=== PATIENT | female | born 1930 | race Caucasian/White ===

== ENCOUNTER 2019-05-29 12:23 | Observation (INO) | payer OTHER ==
[~2019-05-29] VITALS: Ht 163.8 cm; Wt 61.8 kg
[2019-05-29] MEDS ORDERED: SODIUM CHLORIDE FLUSH 10ML SYR IVF ONE (13:00)
[2019-05-29] MEDS ORDERED: ONDANSETRON 2MG/ML, 2ML IV ONE (13:00)
[2019-05-29] MEDS ORDERED: ACETAMINOPHEN 325 MG TABLET PO ONE (13:00)
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
[2019-05-29 13:16] LABS: BASOPHILS # (AUTO) 0.04 x10^3/uL (0-0.1); BASOPHILS % (AUTO) 0 % (0-1); EOSINOPHILS # (AUTO) 0.03 x10^3/uL (0-0.4); EOSINOPHILS % (AUTO) 0 % (1-7); LYMPHOCYTES # (AUTO) 0.99 x10^3/uL (1-3.4); LYMPHOCYTES % (AUTO) 9 % (22-44); MD NO; MEAN CORPUSCULAR HEMOGLOBIN 28.1 pg (27.0-34.8); MEAN CORPUSCULAR HGB CONC 32.4 g/dL (32.4-35.8); MEAN CORPUSCULAR VOLUME 86.6 fL (80-100); MEAN PLATELET VOLUME 8.2 fL (7.4-10.4); MONOCYTES # (AUTO) 1.33 x10^3/uL (0.2-0.8); MONOCYTES % (AUTO) 12 % (2-9); NEUTROPHILS # (AUTO) 8.75 x10^3/uL (1.8-6.8); NEUTROPHILS % (AUTO) 79 % (42-75); PLATELET COUNT 259 x10^3/uL (130-400); RED BLOOD COUNT 4.29 x10^6/uL (3.82-5.3); RED CELL DISTRIBUTION WIDTH 14.8 % (9.6-15.2)
[2019-05-29] MEDS ORDERED: FENTANYL PF 100 MCG/2ML ONE (13:19)
[2019-05-29 13:28] LABS: ANION GAP 10 mmol/L (5-15); CALCIUM 9.1 mg/dL (8.5-10.1); CHLORIDE 104 mmol/L (98-107); CREATININE 1.06 mg/dL (0.55-1.02)
[2019-05-29 13:29] LABS: ALANINE AMINOTRANSFERASE 17 U/L (12-78); ALBUMIN 2.7 g/dL (3.4-5.0)
[2019-05-29] MEDS ORDERED: FENTANYL PF 100 MCG/2ML IVPush PRN (13:30)
[2019-05-29 13:33] LABS: ALKALINE PHOSPHATASE 71 U/L (45-117); BILIRUBIN,TOTAL 1.3 mg/dL (0.2-1.0); TOTAL PROTEIN 6.6 g/dL (6.4-8.2); TROPONIN I 0.022 ng/mL (0.000-0.045)
--- NOTE | 2019-05-29 13:35 | NUR ---
Md meier asked lucinda pain control as patient reported taking 1000mg of tylenol at home.
[2019-05-29] MEDS ORDERED: IPRA0.2S35 INH (13:55)
[2019-05-29] MEDS ORDERED: WARF1TAB74 PO (13:55)
[2019-05-29] MEDS ORDERED: [UNRECOGNIZED DRUG - OTHER] (13:55)
[2019-05-29] MEDS ORDERED: OMEG1CAP23 PO (13:55)
[2019-05-29] MEDS ORDERED: FURO20TA3 PO (13:55)
[2019-05-29] MEDS ORDERED: EZET10TA70 PO (13:55)
[2019-05-29] MEDS ORDERED: POTA10TA6 PO (13:55)
[2019-05-29] MEDS ORDERED: METO50TA82 PO (13:55)
[2019-05-29] MEDS ORDERED: CALC-488 PO (13:55)
[2019-05-29] MEDS ORDERED: ROSU5TAB PO (13:55)
[2019-05-29] MEDS ORDERED: DIGO125T PO (13:55)
[2019-05-29] MEDS ORDERED: GLIP5TAB10 PO (13:55)
[2019-05-29] MEDS ORDERED: THIA50TA4 PO (13:55)
[2019-05-29] MEDS ORDERED: FERR325T23 PO (13:55)
[2019-05-29] MEDS ORDERED: PREG75CA PO (13:55)
[2019-05-29] MEDS ORDERED: FLUO90CA5 PO (13:55)
[2019-05-29] MEDS ORDERED: LEVO25TA4 PO (13:55)
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
[2019-05-29] MEDS ORDERED: SODIUM CHLORIDE FLUSH 10ML SYR IVF PRN (17:00)
[2019-05-29] MEDS ORDERED: SODIUM CHLORIDE 0.9% 1,000 ML IV SCH (17:01)
[2019-05-29] MEDS ORDERED: hydrALAzine 20 MG/ML, 1ML IVPush PRN (17:30)
[2019-05-29] MEDS ORDERED: ONDANSETRON 2MG/ML, 2ML IVPush PRN (17:30)
[2019-05-29] MEDS ORDERED: LABETALOL 5MG/ML, 20ML IVPush PRN (17:30)
[2019-05-29] MEDS ORDERED: PROMETHAZINE 25 MG/ML, 1ML IM PRN (17:30)
[2019-05-29 17:52] LABS: D-DIMER 1.1 ug/mlFEU (0.00-0.52); INTERNATIONAL NORMALIZED RATIO 2.44 (0.93-1.1); PROTHROMBIN TIME 24.8 Seconds (9.6-11.5)
[2019-05-29 17:55] LABS: TROPONIN I < 0.015 ng/mL (0.000-0.045)
--- NOTE | 2019-05-29 18:07 | NUR ---
report to teresa horta
[2019-05-29 18:45] VITALS: BP 156/62
[2019-05-29] MEDS: THIAMINE 50MG TABLET PO SCH (21:00)
[2019-05-29] MEDS: CYCLOBENZAPRINE 10 MG TABLET PO SCH (21:18)
[2019-05-29] MEDS: ACETAMINOPHEN 325 MG TABLET PO PRN (21:19)
[2019-05-29] MEDS: HEPARIN 5,000 UNITS/ML, 1ML SQ SCH (21:22)
[2019-05-29] MEDS ORDERED: LIDODERM 5% PATCH TD SCH (23:00)
[2019-05-29] MEDS ORDERED: LIDODERM 5% PATCH TD PRN (23:30)
[2019-05-29 23:32] LABS: TROPONIN I 0.023 ng/mL (0.000-0.045)
[2019-05-30 00:21] VITALS: BP 162/72
[2019-05-30] MEDS ORDERED: LEVOTHYROXINE 100 MCG TABLET ONE (05:04)
[2019-05-30] MEDS: ACETAMINOPHEN 325 MG TABLET PO PRN ×2 (05:05→15:18)
[2019-05-30] MEDS: HEPARIN 5,000 UNITS/ML, 1ML SQ SCH ×2 (05:05→13:08)
[2019-05-30 05:39] LABS: BASOPHILS # (AUTO) 0.02 x10^3/uL (0-0.1); BASOPHILS % (AUTO) 0 % (0-1); EOSINOPHILS # (AUTO) 0.08 x10^3/uL (0-0.4); EOSINOPHILS % (AUTO) 1 % (1-7); LYMPHOCYTES # (AUTO) 0.96 x10^3/uL (1-3.4); LYMPHOCYTES % (AUTO) 10 % (22-44); MD NO; MEAN CORPUSCULAR HEMOGLOBIN 27.7 pg (27.0-34.8); MEAN CORPUSCULAR HGB CONC 32.1 g/dL (32.4-35.8); MEAN CORPUSCULAR VOLUME 86.2 fL (80-100); MEAN PLATELET VOLUME 8.6 fL (7.4-10.4); MONOCYTES # (AUTO) 1.07 x10^3/uL (0.2-0.8); MONOCYTES % (AUTO) 11 % (2-9); NEUTROPHILS # (AUTO) 7.73 x10^3/uL (1.8-6.8); NEUTROPHILS % (AUTO) 78 % (42-75); PLATELET COUNT 249 x10^3/uL (130-400); RED BLOOD COUNT 4.08 x10^6/uL (3.82-5.3); RED CELL DISTRIBUTION WIDTH 14.9 % (9.6-15.2)
[2019-05-30 05:41] LABS: ALBUMIN 2.4 g/dL (3.4-5.0); ANION GAP 8 mmol/L (5-15); CALCIUM 8.6 mg/dL (8.5-10.1); CHLORIDE 105 mmol/L (98-107)
[2019-05-30 05:44] LABS: ALANINE AMINOTRANSFERASE 16 U/L (12-78); ALKALINE PHOSPHATASE 64 U/L (45-117); CREATININE 0.99 mg/dL (0.55-1.02); TOTAL PROTEIN 6.2 g/dL (6.4-8.2)
[2019-05-30] MEDS ORDERED: LEVOTHYROXINE 100 MCG TABLET PO SCH (06:00)
[2019-05-30 06:30] LABS: RAPID INFLUENZA A Negative (Negative); RAPID INFLUENZA B Negative (Negative)
[2019-05-30 06:57] VITALS: BP 160/68
[2019-05-30] MEDS: CYCLOBENZAPRINE 10 MG TABLET PO SCH (08:47)
[2019-05-30] MEDS: THIAMINE 50MG TABLET PO SCH ×2 (08:47→15:18)
[2019-05-30] MEDS ORDERED: FUROSEMIDE 40 MG TABLET PO SCH (09:00)
[2019-05-30] MEDS ORDERED: METOPROLOL TARTRATE 50 MG TABLET PO SCH (09:00)
[2019-05-30] MEDS ORDERED: EZETIMIBE 10 MG TABLET PO SCH (09:00)
[2019-05-30] MEDS ORDERED: LEVOTHYROXINE 25 MCG TABLET PO SCH (09:00)
[2019-05-30] MEDS ORDERED: DIGOXIN 0.125 MG TABLET PO SCH (09:00)
[2019-05-30] MEDS ORDERED: OMNIPAQUE 350 MG/ML, 100ML BOTTLE ONE (09:09)
[2019-05-30 09:57] LABS: MICROSCOPIC AUTO
[2019-05-30 09:58] LABS: CULTURE INDICATED? YES
[2019-05-30] MEDS ORDERED: HYDROcodone/APAP 5/325 TABLET PO PRN (11:00)
[2019-05-30] MEDS ORDERED: LIDO700A20 TD (14:19)
[2019-05-30] MEDS ORDERED: CYCL-259 PO (14:19)
[2019-05-30] MEDS ORDERED: ACET325T26 PO (14:19)
[2019-05-30 15:20] VITALS: BP 120/63
[2019-05-30] MEDS ORDERED: WARFARIN 1 MG TABLET PO-COUM ONE (18:00)
[2019-05-30] MEDS ORDERED: ATORVASTATIN 20 MG TABLET PO SCH (21:00)
== END 2019-05-30 16:31 ==
LOC: ED 16:35 → EDIP 16:36 → INTOOBSV 16:36 → ED 17:09 → 3N 18:20
PROVIDERS: ADMIT Internal Medicine; ATTEND Internal Medicine
DX: J96.01 Acute respiratory failure with hypoxia (principal); D72.829 Elevated white blood cell count, unspecified; J20.9 Acute bronchitis, unspecified; E44.0 Moderate protein-calorie malnutrition; R79.89 Other specified abnormal findings of blood chemistry; E11.9 Type 2 diabetes mellitus without complications; I48.91 Unspecified atrial fibrillation; E03.9 Hypothyroidism, unspecified; E78.5 Hyperlipidemia, unspecified; Z90.710 Acquired absence of both cervix and uterus; Z88.5 Allergy status to narcotic agent; Z88.1 Allergy status to other antibiotic agents; R07.81 Pleurodynia
CPT/HCPCS: 36415; 71045; 71275; 80053; 81001; 82607; 83036; 83735; 83880; 84100; 84145; 84443; 84484; 85025; 85379; 85610; 85730; 87077; 87086; 87186; 87400; 93005; 96372; 96374; 97162; 97166; 99284; G0378; J1644; J3010; J7030; Q9967